=== PATIENT | female | born 2005 | race Asian ===

== ENCOUNTER 2024-12-21 20:44 | Emergency (ER) | payer MEDICAID, OTHER ==
[~2024-12-21] VITALS: Ht 160 cm; Wt 63.9 kg
--- NOTE | 2024-12-21 21:27 | ED.PDOC ---
SOB-HPI HPI Comments PT CAME TO THE ER WITH CC OF FLULIKE SYMPTOMS (COUGH, SORE CHEST WALL, SOB, SORE THROAT) PT IS A&OX4 RR EVEN AND REGULAR NO DISTRESS NOTED AT THIS TIME. 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 MATERIAL MIXER History Family History Family History: Unknown Social History Smoker: Non-Smoker Alcohol: Denies ETOH Use Drugs: Denies Drug Use All Other Systems: Reviewed and Negative (SEE HPI) Physical Exam General Appearance: No Apparent Distress, Normal HEENT: Pharyngeal Erythema, Pharynx Normal, TMs Normal Neck: Full Range of Motion, Non-Tender Respiratory: Chest Non-Tender, No Accessory Muscle Use, No Respiratory Distress, Wheezing Cardiovascular: No Edema, No JVD, No Murmur, No Gallop, Normal Peripheral Pulses, Regular Rate/Rhythm Breast Exam: Deferred Gastrointestinal: No Organomegaly, Non Tender, No Pulsatile Mass, Normal Bowel Sounds, Soft Genitalia: Deferred Pelvic: Deferred Rectal: Deferred Extremities: Normal capillary refill, Normal range of motion Musculoskeletal : Apperance: Normal Neurologic: Alert, No Motor Deficits, Normal Affect, Normal Mood, No Sensory Deficits Cerebellar Function: Normal Reflexes: Normal, NOT DONE Skin: Dry, Normal Color, Warm Lymphatic: No Adenopathy Was a procedure done? Was a procedure done?: No Differential Dx Differential Diagnosis: Pneumonia, Pharyngitis, URI X-Ray, Labs, Meds, VS Vital Signs Date Time Temp Pulse Resp B/P (MAP) Pulse Ox O2 Delivery O2 Flow Rate FiO2 12/21/24 21:29 99.6 92 17 112/61 (78) 94 99.6 12/21/24 21:29 92 17 94 Room Air 12/21/24 20:46 97.2 95 18 128/71 92 97.2 Lab Test 12/21/24 21:33 Range/Units Influenza Type A Antigen Negative Negative Influenza Type B Antigen Negative Negative SARS-CoV-2 Antigen (Rapid) Negative NEGATIVE Current Medications Medications (Trade) Dose Ordered Sig/Jasmyne Route Start Time Stop Time Status Last Admin Albuterol (Ventolin Medneb) 5 mg ONCE ONCE NEB 12/21/24 21:30 12/21/24 21:31 DC 12/21/24 22:04 Ipratropium Mcintyre (Atrovent Medneb) 0.5 mg ONCE ONCE NEB 12/21/24 21:30 12/21/24 21:31 DC 12/21/24 22:04 Dexamethasone Sodium Phosphate (Decadron Injection) 10 mg ONCE ONCE IM 12/21/24 22:00 12/21/24 22:01 DC 12/21/24 22:09 Ceftriaxone Sodium (Rocephin) 1,000 mg ONCE ONCE IM 12/21/24 22:15 12/21/24 22:16 DC 12/21/24 22:16 X-Ray, Labs, Meds, VS Comment HEST RADIOGRAPH Indication: sob Technique: Frontal and lateral view of the chest was obtained Comparison: None FINDINGS: Increased opacity in the left suprahilar region. Right lung is clear no pleural effusions. Cardiac silhouette is within normal limits. Bones and soft tissues demonstrate no significant abnormality. IMPRESSION: Left suprahilar opacity presumably representing a pneumonia although there may be some volume loss. Suggest follow-up X-rays and 4-6 weeks to confirm resolution. Chest x-ray shows pneumonia. COVID influenza swabs negative. Patient was given duo neb x1 and Decadron reports improvement in symptoms in his requesting discharge at this time. We will treat outpatient patient given Rocephin 1 g IM in script azithromycin advised to take medication as prescribed side effects discussed. Advised patient to closely monitor she continues with high fevers shortness of breath or any difficulty breathing return immediately to the ER. Advised to rest increase p.o. fluids with electrolytes [id number] Tylenol or Motrin as needed for fever or pain per labeled dosing instructions. Patient indicates understanding and agrees with discharge plan of care. Time of 1ST Reevaluation: 20:49 Reevaluation 1ST: Unchanged Time of 2ND Reevaluation: 22:18 Reevaluation 2ND: Improved Patient Education/Counseling: Diagnosis, Treatment, Prognosis, Need For Follow Up Family Education/Counseling: No Family Present SEPSIS Sepsis Screen Date sepsis recognized/suspect: Dec 21, 2024 Time Sepsis recognized/suspect: 2048 Recent Procedure: No On Antibiotic Therapy: No Respiratory Rate >20: No Heart Rate >90: Yes Temp<36 C (96.8 F) or >38.3 C: No SBP <90 or MAP <65 mmHG: No New Acute Mental Status Change: No Is the patient on CPAP, BIPAP,: No Physician Orders Chest Two Views Routine (12/21/24 21:27) Med Neb Initial Treatment (12/21/24 21:28) Vital Signs Date Time Temp Pulse Resp B/P (MAP) Pulse Ox O2 Delivery O2 Flow Rate FiO2 12/21/24 21:29 99.6 92 17 112/61 (78) 94 99.6 12/21/24 21:29 92 17 94 Room Air 12/21/24 20:46 97.2 95 18 128/71 92 97.2 Medications Medications Dose Ordered Sig/Jasmyne Route Start Time Stop Time Status Last Admin Dose Admin Albuterol 5 mg ONCE ONCE NEB 12/21/24 21:30 12/21/24 21:31 DC 12/21/24 22:04 Ceftriaxone Sodium 1,000 mg ONCE ONCE IM 12/21/24 22:15 12/21/24 22:16 DC 12/21/24 22:16 Dexamethasone Sodium Phosphate 10 mg ONCE ONCE IM 12/21/24 22:00 12/21/24 22:01 DC 12/21/24 22:09 Ipratropium Mcintyre 0.5 mg ONCE ONCE NEB 12/21/24 21:30 12/21/24 21:31 DC 12/21/24 22:04 Departure 1 Departure Time of Disposition: 22:17 Impression: Primary Impression: Pneumonia Qualified Codes: J18.9 - Pneumonia, unspecified organism Disposition: HOME / SELF CARE / HOMELESS Condition: Stable e-Prescriptions Azithromycin (Azithromycin) 500 Mg Tab 1 TAB PO DAILY for 5 Days, #5 TAB Prov: SONJA ROSE 12/21/24 Discharged With: Self Critical Care Note Critical Care Time?: No Stability Stability form required: No Heart Score Heart Score: Heart Score Response (Comments) Value History N/A 0 EKG N/A 0 Age <45 0 Risk Factors N/A 0 Troponin N/A 0 Total 0 SONJA ROSE Dec 21, 2024 21:27
[2024-12-21 21:29] VITALS: BP 112/61; PULSE 92; RESP 17; TEMP 99.6; O2SAT 94
[2024-12-21] MEDS: ALBUTEROL SULF 2.5 MG/0.5ML(0.5%) NEB SOLN NEB ONE (22:04)
[2024-12-21] MEDS: IPRATROPIUM BROM 0.5 MG/2.5ML INH SOL NEB ONE (22:04)
--- NOTE | 2024-12-21 22:11 | DVH ---
CHEST RADIOGRAPH Indication: sob Technique: Frontal and lateral view of the chest was obtained Comparison: None FINDINGS: Increased opacity in the left suprahilar region. Right lung is clear no pleural effusions. Cardiac silhouette is within normal limits. Bones and soft tissues demonstrate no significant abnorma lity. IMPRESSION: Left suprahilar opacity presumably representing a pneumonia although there may be some volume loss. Suggest follow-up X-rays and 4-6 weeks to confirm resolution.
[2024-12-21] MEDS: cefTRIAXone SOD 1,000 MG VL IM ONE (22:16)
[2024-12-21] MEDS ORDERED: AZIT500T66 PO (22:19)
[2024-12-21 22:41] LABS: COVID19 ANTIGEN SOFIA FIA NEGATIVE (NEGATIVE)
== END 2024-12-21 22:52 | disposition home or self-care (01) ==
LOC: ER 20:44
DX: J18.9 Pneumonia, unspecified organism (principal); Z20.822 Contact with and (suspected) exposure to COVID-19
CPT/HCPCS: 36415; 71046; 87426; 87804; 94640; 96372; 99284; J0696; J1100